=== PATIENT | male | born 1955 | race Caucasian/White ===

== ENCOUNTER 2018-03-16 12:05 | Emergency (ER) | payer MEDICARE, MEDICAID ==
[~2018-03-16] VITALS: Ht 182.9 cm; Wt 64.0 kg
[~2018-03-16 12:05] MED LIST: CLON0.1T PO; CYCL-1 PO; GABA800T2 PO; LOPE-144 PO; METH-360 PO; NAPR-996 PO; ONDA4TAB6 PO
[2018-03-16] MEDS ORDERED: ketorolac trometh inj. 60 MG/2 ML VIAL IM ONE (12:35)
[2018-03-16] MEDS ORDERED: IBUP-1984 PO (12:36)
[2018-03-16 13:45] VITALS: BP 123/86
== END 2018-03-16 13:49 | disposition home or self-care (01) ==
LOC: ER 12:06
DX: G89.29 Other chronic pain (principal); M54.5 Low back pain; M25.512 Pain in left shoulder; M25.511 Pain in right shoulder; F17.200 Nicotine dependence, unspecified, uncomplicated; F15.90 Other stimulant use, unspecified, uncomplicated; F12.90 Cannabis use, unspecified, uncomplicated; F11.90 Opioid use, unspecified, uncomplicated
CPT/HCPCS: 72100; 96372; 99284; J1885

== ENCOUNTER 2018-03-28 08:46 | Emergency (ER) | payer MEDICARE, MEDICAID ==
[~2018-03-28] VITALS: Ht 182.9 cm; Wt 60.1 kg
[~2018-03-28 08:46] MED LIST changes: +IBUP-1984 PO
[2018-03-28 09:00] VITALS: BP 105/74
[2018-03-28] MEDS ORDERED: ketorolac trometh inj. 60 MG/2 ML VIAL IM ONE (09:40)
== END 2018-03-28 10:05 | disposition home or self-care (01) ==
LOC: ER 08:46
DX: M25.511 Pain in right shoulder (principal); M25.512 Pain in left shoulder; M54.2 Cervicalgia; G89.29 Other chronic pain; F12.90 Cannabis use, unspecified, uncomplicated; F15.90 Other stimulant use, unspecified, uncomplicated; F11.90 Opioid use, unspecified, uncomplicated
CPT/HCPCS: 96372; 99283; J1885

== ENCOUNTER 2018-04-15 08:00 | Emergency (ER) | payer MEDICARE, MEDICAID ==
[~2018-04-15] VITALS: Ht 182.9 cm; Wt 67.5 kg
[2018-04-15 08:17] VITALS: BP 139/83
[2018-04-15] MEDS ORDERED: ibuprofen tablet 400 MG TABLET PO ONE (09:20)
[2018-04-15] MEDS ORDERED: ibuprofen 200mg tablet PO ONE (09:25)
== END 2018-04-15 09:32 | disposition home or self-care (01) ==
LOC: ER 08:00
DX: M25.511 Pain in right shoulder (principal); M54.2 Cervicalgia; M54.5 Low back pain; M25.561 Pain in right knee; G89.29 Other chronic pain; F12.90 Cannabis use, unspecified, uncomplicated; F15.90 Other stimulant use, unspecified, uncomplicated; F11.90 Opioid use, unspecified, uncomplicated; Z79.899 Other long term (current) drug therapy
CPT/HCPCS: 99282

== ENCOUNTER 2018-07-21 09:55 | Emergency (ER) | payer MEDICARE, MEDICAID ==
[~2018-07-21] VITALS: Ht 182.9 cm; Wt 68.1 kg
[~2018-07-21 09:55] MED LIST changes: +GABA800T11 PO; -GABA800T2 PO; -IBUP-1984 PO
[2018-07-21] MEDS ORDERED: LIDOcaine 5% patch TP ONE (10:15)
[2018-07-21] MEDS ORDERED: HYDROcodone/acetaminophen 10/325mg tab PO ONE (10:15)
[2018-07-21] MEDS ORDERED: ketorolac tromethamine 15mg/ml inj. IM ONE (10:15)
[2018-07-21 11:36] VITALS: BP 117/74
== END 2018-07-21 11:47 | disposition home or self-care (01) ==
LOC: ER 09:56
DX: M54.5 Low back pain (principal); G89.29 Other chronic pain; M54.9 Dorsalgia, unspecified; F12.90 Cannabis use, unspecified, uncomplicated; F15.90 Other stimulant use, unspecified, uncomplicated; F11.90 Opioid use, unspecified, uncomplicated
CPT/HCPCS: 96372; 99284; J1885

== ENCOUNTER 2018-08-23 04:07 | Emergency (ER) | payer MEDICARE, MEDICAID ==
[~2018-08-23] VITALS: Ht 182.9 cm; Wt 51.9 kg
[2018-08-23] MEDS ORDERED: acetaminophen 325mg tablet PO ONE (05:00)
[2018-08-23] MEDS ORDERED: ibuprofen tablet 400 MG TABLET PO ONE (05:00)
[2018-08-23 05:20] VITALS: BP 131/78
== END 2018-08-23 05:23 | disposition home or self-care (01) ==
LOC: ER 04:07
DX: G89.29 Other chronic pain (principal); M25.511 Pain in right shoulder; M54.5 Low back pain; F12.90 Cannabis use, unspecified, uncomplicated; F15.90 Other stimulant use, unspecified, uncomplicated; F11.90 Opioid use, unspecified, uncomplicated; Z79.899 Other long term (current) drug therapy; Z56.0 Unemployment, unspecified
CPT/HCPCS: 99283

== ENCOUNTER 2018-11-21 12:31 | Emergency (ER) | payer MEDICARE, MEDICAID ==
[~2018-11-21] VITALS: Ht 182.9 cm; Wt 63.6 kg
[2018-11-21 12:50] VITALS: BP 110/72
[2018-11-21] MEDS ORDERED: NAPR-56 PO (14:38)
[2018-11-21] MEDS ORDERED: METH-360 PO (14:38)
[2018-11-21] MEDS ORDERED: orphenadrine citrate 60mg/2ml inj. IM ONE (14:40)
[2018-11-21] MEDS ORDERED: ketorolac tromethamine 15mg/ml inj. IM ONE (14:40)
== END 2018-11-21 15:02 | disposition home or self-care (01) ==
LOC: ER 12:31
DX: G89.29 Other chronic pain (principal); M54.5 Low back pain; M25.519 Pain in unspecified shoulder; M79.606 Pain in leg, unspecified; F12.90 Cannabis use, unspecified, uncomplicated; F15.90 Other stimulant use, unspecified, uncomplicated; F11.90 Opioid use, unspecified, uncomplicated; Z56.0 Unemployment, unspecified; Z87.438 Personal history of other diseases of male genital organs; Z79.899 Other long term (current) drug therapy; X58.XXXA Exposure to other specified factors, initial encounter; Y93.89 Activity, other specified; Y92.89 Other specified places as the place of occurrence of the external cause; Y99.2 Volunteer activity
CPT/HCPCS: 96372; 99283; J1885; J2360

== ENCOUNTER 2019-08-20 22:45 | Emergency (ER) | payer MEDICARE, MEDICAID ==
[~2019-08-20] VITALS: Ht 182.9 cm; Wt 66.8 kg
--- NOTE | 2019-08-20 23:14 | NUR ---
PT STATES HE IS HOMELESS AND THIS BACK PAIN IS A CHRONIC ISSUE HE'S HAD FOR YEARS AND PRIMARY MD USED TO GIVE MUSCLE RELAXERS TO [place]
[2019-08-21] MEDS ORDERED: ketorolac trometh. 30mg/ml inj. IM ONE (00:05)
[2019-08-21] MEDS ORDERED: cyclobenzaprine 10mg tablet PO ONE (00:05)
[2019-08-21] MEDS ORDERED: CYCL-1 PO ×2 (00:12→00:14)
[2019-08-21 00:53] VITALS: BP 132/74
== END 2019-08-21 00:40 | disposition home or self-care (01) ==
LOC: ER 22:45
DX: G89.29 Other chronic pain (principal); R32 Unspecified urinary incontinence; R20.0 Anesthesia of skin; M62.838 Other muscle spasm; N40.0 Benign prostatic hyperplasia without lower urinary tract symptoms; F17.200 Nicotine dependence, unspecified, uncomplicated; F12.90 Cannabis use, unspecified, uncomplicated; F15.90 Other stimulant use, unspecified, uncomplicated; F11.90 Opioid use, unspecified, uncomplicated; Z72.89 Other problems related to lifestyle; Z56.0 Unemployment, unspecified; Z79.899 Other long term (current) drug therapy
CPT/HCPCS: 96372; 99283; J1885

== ENCOUNTER 2023-01-13 20:43 | Emergency (ER) | payer BC, MEDICAID ==
[~2023-01-13] VITALS: Ht 182.9 cm; Wt 58.8 kg
[2023-01-13 20:53] VITALS: TEMP 98.6
[2023-01-13 22:30] VITALS: BP 14/71; PULSE 72; O2SAT 100
[2023-01-13] MEDS ORDERED: HYDROcodone/acetaminophen 5mg/325mg tablet PO ONE (22:50)
[2023-01-13 23:12] VITALS: RESP 16
[2023-01-14] MEDS ORDERED: CEPH-585 PO (00:02)
[2023-01-14] MEDS ORDERED: HYDR-3965 PO (00:02)
== END 2023-01-14 00:21 | disposition home or self-care (01) ==
LOC: ER 20:43
DX: S01.01XA Laceration without foreign body of scalp, initial encounter (principal); F12.90 Cannabis use, unspecified, uncomplicated; F15.90 Other stimulant use, unspecified, uncomplicated; Z79.899 Other long term (current) drug therapy; Z79.2 Long term (current) use of antibiotics
CPT/HCPCS: 70450; 99284

== ENCOUNTER 2023-08-02 12:00 | Emergency (ER) | payer BC, MEDICAID ==
[~2023-08-02] VITALS: Ht 180.3 cm; Wt 63.0 kg
[~2023-08-02 12:00] MED LIST changes: +CEPH-585 PO
[2023-08-02 12:11] VITALS: TEMP 99.4
[2023-08-02 12:55] LABS: BASOPHILS % (AUTO) 0.1 % (0-1); EOSINOPHILS % (AUTO) 0.1 % (0-6); LYMPHOCYTES # (AUTO) 1.4 X10'3 (1.1-4.8); LYMPHOCYTES % (AUTO) 6.5 % (21-51); MEAN CORPUSCULAR HEMOGLOBIN 32.8 PG (27.0-31.0); MEAN CORPUSCULAR HGB CONC 34.2 g/dL (33.0-36.5); MEAN CORPUSCULAR VOLUME 96.1 FL (78-98); MEAN PLATELET VOLUME 7.2 FL (7.4-10.4); MONOCYTES # (AUTO) 1.3 X10'3 (0-0.9); MONOCYTES % (AUTO) 6.1 % (2-12); NEUTROPHILS # (AUTO) 18.1 X10'3 (1.8-7.7); NEUTROPHILS % (AUTO) 87.2 % (42-75); PLATELET COUNT 328 X10'3 (140-440); RED BLOOD COUNT 3.96 X10'6 (4.70-6.10); RED CELL DISTRIBUTION WIDTH 12.6 % (11.5-14.5); WHITE BLOOD COUNT 20.8 X10'3 (4.5-11.0)
[2023-08-02 13:22] LABS: ALBUMIN 2.6 G/DL (3.4-5.0); ANION GAP 5 (8-16); BLOOD UREA NITROGEN 16 MG/DL (7-18); BUN/CREATININE RATIO 18.8 (10.0-20.0); CHLORIDE 95 MMOL/L (99-107); CREATININE 0.85 MG/DL (0.60-1.10); GLUCOSE 105 MG/DL (70-104); POTASSIUM 4.3 MMOL/L (3.5-5.1); PRO BRAIN NATRIURETIC PEPTIDE 277 PG/ML (0-125); SODIUM 131 MMOL/L (135-145); TOTAL CARBON DIOXIDE 31.4 MMOL/L (24-32); eCRCL 77 ML/MIN; eGFR 90 ML/MIN
[2023-08-02 14:03] LABS: BILIRUBIN,URINE SMALL (Neg); CLARITY,URINE CLEAR (Clear); COLOR,URINE YELLOW (Yellow); GLUCOSE, URINE 100 mg/dl (Neg); KETONES,URINE NEGATIVE (Neg); LEUKOCYTE ESTERASE ,URINE NEGATIVE (Neg); NITRITES, URINE NEGATIVE (Neg); OCCULT BLOOD,URINE SMALL (Neg); PROTEIN,URINE NEGATIVE (Neg); UROBILINOGEN,URINE >=8.0 E.U/dL (0.2-1.0)
[2023-08-02 14:04] LABS: UA COLLECTION TYPE CLN CATCH MIDSTREAM
[2023-08-02] MEDS: methylPREDNISolone sod succ 125mg/2ml vial IV ONE (14:05)
[2023-08-02] MEDS: azithromycin/NS 500mg/250ml 250 ML IV ONE (14:06)
[2023-08-02] MEDS: CefTRIAXone 2gm/D5W 50ml BAG 50 ML IV ONE (14:06)
[2023-08-02 14:07] LABS: SQUAMOUS EPITHELIAL CELL,UR FEW /LPF (FEW)
[2023-08-02 14:08] LABS: BACTERIA,URINE FEW /HPF (Neg); MUCUS STRANDS FEW /LPF (Neg); WBC,URINE 0-4 /HPF (0-4)
[2023-08-02] MEDS: ipratropium/albuterol 3ml nebule NEB ONE (14:12)
[2023-08-02 14:13] VITALS: PULSE 78; RESP 13
[2023-08-02 14:22] VITALS: PULSE 86; RESP 16; O2SAT 96
[2023-08-02 14:41] LABS: ALANINE AMINOTRANSFERASE 33 U/L (12-78); ALBUMIN 2.7 G/DL (3.4-5.0); ALBUMIN/GLOBULIN RATIO 0.6 (1.1-1.5); ALKALINE PHOSPHATASE 79 IU/L (46-116); ASPARTATE AMINO TRANSFERASE 34 U/L (10-37); BILIRUBIN,DIRECT 0.4 MG/DL (0-0.3); BILIRUBIN,TOTAL 0.9 MG/DL (0.1-1.0); TOTAL PROTEIN 7.5 G/DL (6.4-8.2)
[2023-08-02] MEDS ORDERED: ALBU18HF2 INH (15:51)
[2023-08-02] MEDS ORDERED: PRED20TA PO (15:51)
[2023-08-02] MEDS ORDERED: AMOX-117 PO (15:51)
[2023-08-02] MEDS ORDERED: AZIT250T83 PO (15:51)
[2023-08-02] MEDS ORDERED: GUAI600T45 PO (15:51)
[2023-08-02 15:57] VITALS: BP 142/75; PULSE 86; RESP 16; O2SAT 97
== END 2023-08-02 16:20 | disposition home or self-care (01) ==
LOC: ER 12:01
DX: J18.9 Pneumonia, unspecified organism (principal); Z20.822 Contact with and (suspected) exposure to COVID-19; F12.90 Cannabis use, unspecified, uncomplicated; F15.90 Other stimulant use, unspecified, uncomplicated; Z79.2 Long term (current) use of antibiotics; Z79.899 Other long term (current) drug therapy
CPT/HCPCS: 36415; 71045; 80048; 80076; 81001; 83605; 83880; 84145; 84484; 85025; 87040; 87502; 87503; 87811; 93005; 94640; 96365; 96368; 96375; 99285; J0456; J0696; J2930; 94760

== ENCOUNTER 2023-10-13 11:59 | Emergency (ER) | payer BC, MEDICAID ==
[~2023-10-13] VITALS: Ht 182.9 cm; Wt 63.4 kg
[~2023-10-13 11:59] MED LIST changes: +ALBU18HF2 INH; +GUAI600T45 PO
[2023-10-13 12:06] VITALS: BP 126/68; PULSE 72; O2SAT 96
[2023-10-13] MEDS ORDERED: FLO0.4C PO (12:47)
[2023-10-13 12:53] VITALS: RESP 17; TEMP 97.2
== END 2023-10-13 12:54 | disposition home or self-care (01) ==
LOC: ER 12:01
DX: N40.0 Benign prostatic hyperplasia without lower urinary tract symptoms (principal); Z76.0 Encounter for issue of repeat prescription; G89.29 Other chronic pain; M54.9 Dorsalgia, unspecified; F12.90 Cannabis use, unspecified, uncomplicated; F15.90 Other stimulant use, unspecified, uncomplicated; F11.90 Opioid use, unspecified, uncomplicated; Z72.89 Other problems related to lifestyle; Z56.0 Unemployment, unspecified; Z79.899 Other long term (current) drug therapy; Z79.1 Long term (current) use of non-steroidal anti-inflammatories (NSAID); Z59.00 Homelessness unspecified
CPT/HCPCS: 99281

== ENCOUNTER 2025-03-11 05:15 | Emergency (ER) | payer BC, MEDICAID ==
[~2025-03-11] VITALS: Ht 182.9 cm; Wt 63.0 kg
[~2025-03-11 05:15] MED LIST changes: +GABA-1555 PO; -GABA800T11 PO; +NAPR-1168 PO; -NAPR-996 PO
[2025-03-11 05:24] VITALS: BP 122/68; PULSE 98; RESP 18; TEMP 99.4; O2SAT 95
--- NOTE | 2025-03-11 06:28 | Physician Documentation ---
History of Present Illness ~ General Chief Complaint: Multiple Medical Complaints Stated Complaint: DIARRHEA Time Seen by MD: 06:07 Primary Medical Doctor: NO PMD History of Present Illness Initial Comments This is a 69-year-old homeless gentleman well known to this emergency department who called an ambulance for reasons unknown. Evidently he was at the gas station, ask someone to call an ambulance, when the ambulance got called he laid down on the floor. He complained to the ambulance crew about diarrhea, generalized body aches, backache, neck ache, and was concerned with the fact that he might have a cotton fever because he shot up some drugs recently. He states that he actually showed up meth. He also states that he took an unknown pill. He also states that he has called and wet because it is raining outside. Medication Reconciliation Allergies: Coded Allergies: No Known Allergies (Unverified , 09/13/16) Scheduled Cephalexin*Monohydrate* (Keflex*), 1 CAP PO QID Clonidine Hcl (Clonidine Hcl), 0.1 MG PO BID Cyclobenzaprine* (Cyclobenzaprine*), 1 TAB PO TID Gabapentin (Gabapentin), 1 TAB PO Q8H Guaifenesin (Mucinex), 1 TAB PO Q12H Methocarbamol (Robaxin-750), 1 TAB PO Q12H Methocarbamol (Robaxin-750), 1 TAB PO Q12H Methocarbamol (Robaxin-750), 1 TAB PO Q12H Naproxen (Naproxen), 1 TAB PO Q12H Scheduled PRN Albuterol Sulfate (Ventolin Hfa), 2 PUFFS INH Q4HPRN PRN for wheezing Cyclobenzaprine* (Cyclobenzaprine*), 1 TABLET PO Q8H PRN for muscle spasms Cyclobenzaprine* (Cyclobenzaprine*), 1 TABLET PO Q8H PRN for muscle spasms Cyclobenzaprine* (Cyclobenzaprine*), 1 TABLET PO HS PRN for muscle spasms Cyclobenzaprine* (Cyclobenzaprine*), 1 TAB PO TID PRN for pain Cyclobenzaprine* (Cyclobenzaprine*), 1 TAB PO TID PRN for pain Loperamide HCl (Imodium A-D), 1 TAB PO Q2H PRN for diarrhea Ondansetron Hcl (Zofran), 1 TABLET PO Q6H PRN for nausea Past Medical History Past Medical History: BPH, Chronic Pain, Chronic Back Pain Past Surgical History: no surgical history Alcohol Use: Occasionally Drug Use: marijuana, methamphetamine, heroin Lives with: Family Lives In: Home Occupation: unemployed Review of Systems ROS 10 point review of systems was performed and unless noted above in HPI is negative for acute process/complaint. Physical Exam Physical Exam Vital Signs: Temperature: 99.4, Source: Oral, Heart Rate: 98, Respiratory Rate: 18, BP: 122/68, Pulse Oximetry: 95, Weight: 63.000 Oxygen Flow Rate: 0 Physical Exam Physical examination: GENERAL: Awake, alert, oriented, GCS 15, no apparent distress, non-toxic appearing, answers questions, follows commands appropriately. Obvious stigmata of homelessness HEENT: Atraumatic, normocephalic, pupils equal, extraocular muscles intact Active gross movements, sclerae anicteric, mucus membranes moist, no stridor. NECK: Midline, no JVD CARDIOVASCULAR: Good skin perfusion without evidence of pallor, mottling. PULMONARY: Nonlabored, symmetric chest rise, no audible wheezing, no accessory muscle use, no respiratory distress, speaking in full sentences. GASTROINTESTINAL: Not distended. NEUROLOGIC: Lucid with normal mental status. Normal facial symmetry. Moves all extremities symmetrically and with purpose. No truncal ataxia. Speech is fluid without evidence of dysarthria or aphasia, no focal deficits appreciated. EXTREMITIES: Acute deformities Skin: warm, dry PSYCHIATRIC: Normal affect, normal insight, normal concentration. Focused exam: [] Progress Results/Orders Results/Orders Completed Orders - ARSLAN DODD DO Ibuprofen Tablet (Motrin Tablet) (03/11/25 06:10) Vital Signs 03/11/25 05:24 Temp 99.4 Pulse 98 Resp 18 B/P (MAP) 122/68 Pulse Ox 95 O2 Flow Rate 0 Medical Decision Making Additional information obtaine: old records, other (EMS) Findings Facility Status: ED Holds, [facility] process The plan was discussed with the patient, who demonstrates clear understanding of the plan and is in agreement with the plan unless otherwise noted in the chart. All questions have been answered, all concerns were addressed unless otherwise documented. I was available throughout their ED stay for frequent reassessment and questions. Differential Diagnoses (considered and possible or likely): [Acute on chronic homelessness exacerbation, methamphetamine intoxication, exposure to elements, chronic back pain, chronic neck pain] ??Differential Diagnoses (considered and unlikely, not requiring evaluation currently): [Denies chest pain or difficulty breathing] MDM Data Please see HPI for the following: Independent Historians and external Records Review. Historian: [Patient] Independent Historians: ?[Record review, EMS] Medication Management: [Reviewed medication list] Social History and determinants: [Reviewed] Please see the body of the note for the following: Any independent interpretations of ECG, imaging studies. All vitals signs/haemodynamics, ordered tests were independently reviewed and interpreted by myself. Nursing triage complaint and vitals reviewed, additional nursing notes were reviewed as available and I agree unless otherwise noted or documented in contradiction in the chart Vital Signs: Independently reviewed Labs: Independently interpreted Imaging: Independently interpreted Old Medical Records: Independently reviewed, see HPI for relevant summary and information Pulse Oximetry: [97%] interpreted as [normal on room air] by me Additionally notably showing: [Hemodynamically stable] Tests considered but not ordered include: [Hematologic workup and imaging has been considered but does not appear to be necessary given clinical nature of diagnosis] Social Determinants of Health Impact: Patient was evaluated in [facility], or [facility] [place] to healthcare due to below par ratio of patient to medical providers. [] Comorbid Conditions Impacting Present Evaluation and Care/Treatment: [Homel essness and methamphetamine abuse] Management Discussions with other Healthcare Providers: [] Treatment and Disposition Medication Management (Given or considered): [Pain management]. See EMR for details Consideration for Hospitalization/Escalation/Deescalation of Care: Admission for observation has been considered, [however the patient is able to tolerate p.o., their symptoms are controlled, they are able to rely on oral medications, and their chief complaint/diagnosis can be managed on outpatient basis.] ?ED Course:?[The patient appears to be in no acute distress. He went to the bathroom, when he came out he proton at a ring jacket and left.] ?Shared decision making:?[] Code status:?FULL Please see the full Electronic Medical Record for full details of nursing documentation, medications list, other records of complete past medical history and conditions, vital signs, laboratory studies, and any radiologic study interpretations by radiologists. Portions of this note were completed using [employer] dictation software and as a result there may exist minor errors in spelling. I have reviewed elements of past family and social history and agree as included in note. Differential Diagnosis See the body of main note Departure Disposition: 01 HOME / SELF CARE / HOMELESS Impression: Primary Impression: Chronic back pain Additional Impression: Methamphetamine intoxication Condition: Improved Referrals: NO PRIMARY CARE PROVIDER (PCP) Signature Scribe Signature: No scribe Attestation: This note accurately reflects clinical decisions, work performed by myself, DO JU Tejeda NICHOLAS M DO Mar 11, 2025 06:28
[2025-03-11] MEDS: ibuprofen tablet 400 MG TABLET PO ONE (07:09)
== END 2025-03-11 07:12 | disposition home or self-care (01) ==
LOC: ER 05:16
DX: F15.129 Other stimulant abuse with intoxication, unspecified (principal); G89.29 Other chronic pain; F12.90 Cannabis use, unspecified, uncomplicated; F11.90 Opioid use, unspecified, uncomplicated; Z59.00 Homelessness unspecified; Z79.899 Other long term (current) drug therapy; Z56.0 Unemployment, unspecified; Z72.89 Other problems related to lifestyle
CPT/HCPCS: 99283